=== PATIENT | male | born 1960 | race African-American/Black ===

== ENCOUNTER 2018-09-02 13:38 | Inpatient (IN) | payer OTHER | END 2018-09-04 13:07 | disposition home or self-care (01) | LOC: ED 13:38 → DU 09-04 13:07 → ED 13:38 → DU 19:21 → ED 13:38 → DU 17:14 → ED 13:38 → DU 17:14 | DX: A41.9 Sepsis, unspecified organism (principal); J69.0 Pneumonitis due to inhalation of food and vomit; J44.1 Chronic obstructive pulmonary disease with (acute) exacerbation; E87.6 Hypokalemia; R73.03 Prediabetes; I10 Essential (primary) hypertension; I48.91 Unspecified atrial fibrillation; Z79.82 Long term (current) use of aspirin ==